=== PATIENT | female | born 1985 ===

== ENCOUNTER → 2021-02-08 12:59 | Outpatient (CLI) | payer OTHER, MEDICAID, SELFPAY ==
[2021-02-08 22:04] LABS: Free T4, Direct Thyroxine 1.06 ng/dL (0.78-2.19)
== END ==
PROVIDERS: PCP Physician Assistant; Visit Provider Physician Assistant
DX: E03.9 Hypothyroidism, unspecified (principal)
CPT/HCPCS: 84439; 84443